=== PATIENT | male | born 1965 | race Hispanic/Latino ===

== ENCOUNTER 2023-10-27 12:40 | Emergency (ER) | payer OTHER ==
--- OUTSIDE RECORDS SUMMARY | 2023-10-27 12:43 | XMS REPORT | Continuity of Care Document ---
Author Name Unknown Address [address] [facility] [address] [place] [address] [facility] Address [address] [facility] 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 Phone BECKA BRAVO Primary Care Physician BECKA Sparrow Attending Clinician Unavailab BECKA Acevedo Attending Clinician Unavailab KRUPA Morales Attending Clinician Unavailable Haile Tang MD Attending Clinician [phone] HAILE TANG Attending Clinician Unavailable Marcelino Bradshaw PA-C Attending Clinician [phone] ANY LIMA Attending Clinician Unavailable ANY LIMA Attending Clinician Unavailable MARCELINO BRADSHAW Attending Clinician Unavailable VAMSI SALGADO Attending Clinician Unavailable Vamsi Salgado PA-C Attending Clinician [phone] 2, [facility] Attending Clinician Unavailable Becka Bravo NP Attending Clinician [phone] MEME KENT Attending Clinician Unavailab MEME Gore Attending Clinician Unavailab SALO Horne Attending Clinician Unavailable 2, [facility] Attending Clinician Unavailable Salo Yang Attending Clinician [phone] Doctor Unassigned, Sargent Attending Clinician U Jeana Banegas MA Attending Clinician Unava ildamaris Payers Payer Name Policy Type Policy Number Effective Date Expirati on Date Source [facility] [id number] 2002 00:00:00 Allergies, Adverse Reactions, Alerts Allergy Name Allergy Type Status Severity Reaction(s) Onset Date Inactive Date Treating Clinician Comments Source NO KNOWN ALLERGIE S Drug Class Active [facility] Social History Social Habit Start Date Stop Date Quantity Comments Source Gender identity [facility] Alcoholic beverage intake 2023-10-27 00:00:00 2023-10-27 00:00:00 3.43 /d [facility] Tobacco use and exposure 2023-10-16 00:00:00 2023-10-16 00:00:00 Smokeless tobacco non-user [facility] History of Social function 2023-04-14 00:00:00 2023-04-14 00:00:00 [facility] Alcohol intake 2023-04-14 00:00:00 2023-04-14 00:00:00 3.43 /d [facility] Exposure to SARS-CoV-2 (event) 2022-05-30 00:00:00 2022-06-09 13:45:00 Not sure [facility] Alcohol Comment 2022-06-09 00:00:00 2022-06-09 00:00:00 drinks 24 packs on weekends [facility] Sex assigned at 1965 00:00:00 1965 00:00:00 [facility] Smoking Status Start Date Stop Date Source Tobacco smoking consumption unknown [facility] Never smoked tobacco [facility] Medications Ordered Medication Name Filled Medication Name Start Date Stop Date Current Medication? Ordering Clinician Indication Dosage Frequency Signature (SIG) Comments Components Source ciprofloxac in-dexameth asone (CIPRODEX) 0.3-0.1 % otic drops 03 00:00: 00 11-26 04:59 :00 Yes [id number] 4[drp] Place 4 Drops in left ear in the morning and 4 Drops in the evening. Do all this for 30 days. [facility] clotrimazol e 1 % solution 10-22 00:00: 00 Yes [id number] 5 drops to right ear twice daily for two weeks [facility] gabapentin 100 mg capsule 10-22 00:00: 00 Yes [id number] 100mg Take 1 capsule by mouth in the morning and 1 capsule at noon and 1 capsule in the evening. [facility] celecoxib (CELEBREX) 50 mg capsule 10-22 00:00: 00 Yes [id number] Take 50 mg (1 cap) PO 2x daily with food and water for 10 days then decrease to every 12 hrs as needed for jaw/facial pain/heada ches. Use [place] coupon or self-pay if not covered by insurance [facility] prednisoLON E acetate 1 % ophthalmic suspension drops 10-15 00:00: 00 Yes [id number] 4[drp] Place 4 Drops in both ears in the morning and 4 Drops in the evening. [facility] cefTRIAXone (ROCEPHIN) injection 1,000 mg 09-28 19:30: 00 09-28 19:02 :00 No [id number] 1000mg 1,000 mg, Intramuscu lar, ONCE, 1 dose, On Thu09/29/23 at 1430, NICK, Reason for Anti-Infec tive: Documented Infection, Documented Infection Site: HEENT, Duration of Therapy: Other (see Comments) [facility] ketorolac (TORADOL) injection 30 mg 09-28 19:30: 00 09-28 18:45 :38 No [id number] 30mg [facility] ketorolac (TORADOL) injection 45 mg 09-28 19:30: 00 09-28 19:01 :00 No [id number] 45mg 45 mg, Intramuscu lar, ONCE, 1 dose, On Thu09/29/23 at 1430, Routine [facility] diclofenac 75 mg EC tablet 09-28 00:00: 00 Yes [id number] 75mg Take 1 tablet by mouth in the morning and 1 tablet in the evening. Take with meals. [facility] tirzepatide (MOUNJARO) 7.5 mg/0.5 mL subcutaneou s injection 2024-0 8-06 00:00: 00 Yes [id number] 7.5mg inject 7.5 mg under the skin weekly. Next dose [facility] cefUROXime 500 mg tablet 09-28 00:00: 00 10-06 04:59 :00 Yes [id number] 500mg Take 1 tablet by mouth in the morning and 1 tablet in the evening. Do all this for 7 days. [facility] tirzepatide (MOUNJARO) 7.5 mg/0.5 mL subcutaneou s injection 09-02 00:00: 00 09-28 00:00 :00 No [id number] 7.5mg inject 7.5 mg under the skin weekly. Next dose [facility] neomycin-po lymyxin-hyd rocortisone otic solution 09-02 00:00: 00 09-10 04:59 :00 Yes [id number] 3[drp] Place 3 Drops in right ear 4 (four) times daily for 7 days. [facility] ciprofloxac in HCl 500 mg tablet 09-02 00:00: 00 09-08 04:59 :00 Yes [id number] 500mg Take 1 tablet by mouth every 12 (twelve) hours for 5 days. [facility] triamcinolo ne acetonide 0.1 % cream 07-09 00:00: 00 Yes [id number] Apply to area(s) 2 (two) times daily. [facility] tirzepatide (MOUNJARO) 7.5 mg/0.5 mL subcutaneou s injection 07-09 00:00: 00 09-02 00:00 :00 No [id number] 7.5mg inject 7.5 mg under the skin weekly. Next dose [facility] tirzepatide (MOUNJARO) 5 mg/0.5 mL subcutaneou s injection 07-09 00:00: 00 09-02 00:00 :00 No [id number] 5mg inject 5 mg under the skin weekly. [facility] tirzepatide (MOUNJARO) 5 mg/0.5 mL subcutaneou s injection 3-29 00:00: 00 07-09 00:00 :00 No [id number] 5mg inject 5 mg under the skin weekly. [facility] tirzepatide (MOUNJARO) 5 mg/0.5 mL subcutaneou s injection 3-28 00:00: 00 Yes [id number] 5mg inject 5 mg under the skin weekly. Start 2.5mg SC qWeek x 4 Weeks, then increase to 5 mg SC qWeek [facility] GLIMEPIRIDE ORAL 2023- 2-20 09:50: 48 04-14 00:00 :00 No 4mg Take 4 mg by mouth in the morning and 4 mg in the evening. [facility] lisinopriL 40 mg tablet 2-20 00:00: 00 Yes [id number] 20mg Take 0.5 tablets by mouth in the morning. [facility] metformin ER 500 mg 24 hr tablet -20 00:00: 00 Yes [id number] 1000mg Take 2 tablets by mouth in the morning and 2 tablets in the evening. [facility] simvastatin 40 mg tablet 2-20 00:00: 00 Yes [id number] 40mg Take 1 tablet by mouth at bedtime. [facility] glimepiride 4 mg tablet 2-20 00:00: 00 07-09 00:00 :00 No [id number] 4mg Take 1 tablet by mouth in the morning and 1 tablet in the evening. Take with meals. [facility] tirzepatide 7.5 mg/0.5 mL subcutaneou s injection 1-24 00:00: 00 07-09 00:00 :00 No [id number] 7.5mg inject 7.5 mg under the skin weekly. Start 2.5mg qWeek x 4 Weeks, then increase to 5mg qWeek x 4 Weeks, then increase to 7.5mg qWeek x 4 Weeks, the increase to 10mg qWeek. [facility] tirzepatide 2.5 mg/0.5 mL subcutaneou s injection 1-24 00:00: 00 05-20 00:00 :00 No [id number] 2.5mg inject 2.5 mg under the skin weekly. Start 2.5mg qWeek x 4 Weeks, then increase to 5mg qWeek x 4 Weeks, then increase to 7.5mg qWeek x 4 Weeks, the increase to 10mg qWeek. [facility] tirzepatide (MOUNJARO) 5 mg/0.5 mL subcutaneou s injection 1-24 00:00: 00 05-19 00:00 :00 No [id number] 5mg inject 5 mg under the skin weekly. Start 2.5mg SC qWeek x 4 Weeks, then increase to 5 mg SC qWeek [facility] semaglutide (OZEMPIC) 1 mg/dose (4 mg/3 mL) Ij 03-13 00:00: 00 03-18 00:00 :00 No [id number] INJECT ONE (1) MG UNDER THE SKIN ONCE WEEKLY. [facility] blood sugar diagnostic strip 09-30 00:00: 00 Yes [id number] Check blood sugar two times a day. E11.9. Brand per insurance. [facility] Blood-Gluco se Meter Kit 09-30 00:00: 00 Yes [id number] Check sugars two times a day. Dx. Code E11.9 Brand per Insurance [facility] Lancets Misc 09-30 00:00: 00 Yes [id number] Check sugars 2x times a day. Dx Code E11.9. Brand per insurance. [facility] semaglutide (OZEMPIC) 1 mg/dose (4 mg/3 mL) PnIj 09-30 00:00: 00 03-13 00:00 :00 No [id number] 1mg inject 1 mg under the skin weekly. [facility] terbinafine HCL 250 mg tablet 8 00:00: 00 11-15 04:59 :00 No [id number] 250mg Take 1 tablet by mouth in the morning for 45 days. [facility] semaglutide (OZEMPIC) 0.25 mg or 0.5 mg (2 mg/3 mL) Ij 09-26 00:00: 00 09-30 00:00 :00 No [id number] .5mg inject 0.5 mg under the skin weekly. [facility] semaglutide (OZEMPIC) 1 mg/dose (4 mg/3 mL) Ij 09-26 00:00: 00 09-30 00:00 :00 No [id number] 1mg inject 1 mg under the skin weekly. [facility] simvastatin 40 mg tablet 09-12 16:27: 38 09-12 00:00 :00 No 40mg Take 1 tablet by mouth at bedtime. [facility] LISINOPRIL ORAL 09-12 16:27: 32 09-12 00:00 :00 No 40mg Take 40 mg by mouth in the morning. [facility] metFORMIN 1,000 mg tablet 09-12 16:27: 32 09-12 00:00 :00 No 1000mg Take 1 tablet by mouth in the morning and 1 tablet in the evening. Take with meals. [facility] GLIMEPIRIDE ORAL 09-12 15:35: 31 Yes 4mg Take 4 mg by mouth in the morning and 4 mg in the evening. [facility] clotrimazol e-betametha sone cream 09-12 00:00: 00 04-14 00:00 :00 No [id number] Apply to area(s) 2 (two) times daily. [facility] simvastatin 40 mg tablet 09-12 00:00: 00 04-14 00:00 :00 No [id number] 40mg Take 1 tablet by mouth at bedtime. [facility] lisinopriL 40 mg tablet 09-12 00:00: 00 04-14 00:00 :00 No [id number] 20mg Take 0.5 tablets by mouth in the morning. [facility] metformin ER 500 mg 24 hr tablet 09-12 00:00: 00 04-14 00:00 :00 No [id number] 1000mg Take 2 tablets by mouth in the morning and 2 tablets in the evening. [facility] GLIMEPIRIDE ORAL 06-11 16:31: 43 Yes 4mg Take 4 mg by mouth in the morning and 4 mg in the evening. [facility] LISINOPRIL ORAL 06-11 16:31: 43 Yes 40mg Take 40 mg by mouth in the morning. [facility] simvastatin 40 mg tablet 0 06-11 16:31: 43 Yes 40mg Take 1 tablet by mouth at bedtime. [facility] metFORMIN 1,000 mg tablet 06-11 16:31: 43 Yes 1000mg Take 1 tablet by mouth in the morning and 1 tablet in the evening. Take with meals. [facility] GLIMEPIRIDE ORAL 06-09 14:25: 22 Yes 4mg Take 4 mg by mouth in the morning and 4 mg in the evening. [facility] LISINOPRIL ORAL 06-09 14:25: 22 Yes 40mg Take 40 mg by mouth in the morning. [facility] simvastatin 40 mg tablet 06-09 14:25: 22 Yes 40mg Take 1 tablet by mouth at bedtime. [facility] metFORMIN 1,000 mg tablet 06-09 14:25: 22 Yes 1000mg Take 1 tablet by mouth in the morning and 1 tablet in the evening. Take with meals. [facility] silver sulfADIAZIN E 1 % cream 06-09 00:00: 00 07-09 00:00 :00 No [id number] APPLY TWICE DAILY UNTIL HEALED. [facility] semaglutide (OZEMPIC) 1 mg/dose (4 mg/3 mL) PnIj 06-09 00:00: 00 08-09 04:59 :00 No [id number] 1mg inject 1 mg under the skin weekly for 60 days. [facility] semaglutide (OZEMPIC) 0.25 mg or 0.5 mg (2 mg/3 mL) Ij 2022-0 06-09 00:00: 00 07-24 04:59 :00 No [id number] .25mg inject 0.25 mg under the skin weekly [facility] semaglutide (OZEMPIC) 0.25 mg or 0.5 mg(2 mg/1.5 mL) Ij 06-09 00:00: 00 07-10 04:59 :00 No [id number] .25mg inject 0.25 mg under the skin weekly for 30 days. [facility] semaglutide (OZEMPIC) 0.25 mg or 0.5 mg(2 mg/1.5 mL) [facility] 2022-0 06-09 00:00: 00 07-10 04:59 :00 No [id number] .5mg inject 0.5 mg under the skin weekly for 30 days. [facility] semaglutide (OZEMPIC) 0.25 mg or 0.5 mg (2 mg/3 mL) Ij 0 06-09 00:00: 00 07-10 04:59 :00 No [id number] .5mg inject 0.5 mg under the skin weekly for 30 days. [facility] cephALEXin 500 mg capsule 05-26 00:00: 00 09-12 00:00 :00 No TAKE ONE (1) CAPSULE(S) BY MOUTH EVERY SIX HOURS FOR 7 DAYS. [facility] clindamycin 300 mg capsule 05-26 00:00: 00 09-12 00:00 :00 No TAKE ONE (1) TABLET(S) BY MOUTH EVERY SIX HOURS FOR 10 DAYS. [facility] silver sulfADIAZIN E 1 % cream 05-26 00:00: 00 06-09 00:00 :00 No APPLY TWICE DAILY UNTIL HEALED. [facility] Vital Signs Vital Name Observation Time Observation Value Comments S ource Body temperature 2023-10-27 14:51:00 35.67 [facility] Body height 2023-10-27 14:51:00 170.2 cm [facility] 2023-10-27 14:51:00 73.846 [facility] BMI 2023-10-27 14:51:00 25.50 kg/m2 [facility] Body temperature 2023-10-23 16:25:00 36.22 Luc[facility] Body height 2023-10-23 16:25:00 170.2 cm [facility] Body weight 2023-10-23 16:25:00 73.029 kg [facility] BMI 2023-10-23 16:25:00 25.22 kg/m2 [facility] Body temperature 2023-10-16 18:14:00 35.33 Lucinda [facility] Body height 2023-10-16 18:14:00 170.2 cm [facility] Body weight 2023-10-16 18:14:00 74.617 kg [facility] BMI 2023-10-16 18:14:00 25.76 kg/m2 [facility] Systolic blood pressure 2023-09-29 18:15:00 131 mm[Hg] [facility] Diastolic blood pressure 2023-09-29 18:15:00 77 mm[Hg] [facility] Heart rate 2023-09-29 18:14:00 71 [facility] Body temperature 2023-09-29 18:14:00 36.39 [facility] Body height 2023-09-29 18:14:00 170.2 cm [facility] Body weight 2023-09-29 18:14:00 77.111 kg [facility] BMI 2023-09-29 18:14:00 26.63 kg/m2 [facility] Oxygen saturation in Arterial blood by Pulse oximetry 2023-09-29 18:14:00 99 /min [facility] Systolic blood pressure 2023-09-03 20:53:00 139 mm[Hg] [facility] Diastolic blood pressure 2023-09-03 20:53:00 82 mm[Hg] [facility] Heart rate 2023-09-03 20:53:00 97 /min [facility] Body temperature 2023-09-03 20:53:00 36.89 Lucinda [facility] Respiratory rate 2023-09-03 20:53:00 18 /min [facility] Body height 2023-09-03 20:53:00 170.2 cm [facility] Body weight 2023-09-03 20:53:00 78.019 kg [facility] BMI 2023-09-03 20:53:00 26.94 kg/m2 [facility] Oxygen saturation in Arterial blood by Pulse oximetry 2023-09-03 20:53:00 99 /min [facility] Systolic blood pressure 2023-07-10 15:35:00 111 mm[Hg] [facility] Diastolic blood pressure 2023-07-10 15:35:00 67 mm[Hg] [facility] Heart rate 2023-07-10 15:35:00 72 /min [facility] Body temperature 2023-07-10 15:35:00 36.17 Lucinda [facility] Body height 2023-07-10 15:35:00 170.2 cm [facility] Body weight 2023-07-10 15:35:00 79.652 kg [facility] BMI 2023-07-10 15:35:00 27.50 kg/m2 [facility] Oxygen saturation in Arterial blood by Pulse oximetry 2023-07-10 15:35:00 99 /min [facility] Systolic blood pressure 2023-04-14 15:33:00 132 mm[Hg] [facility] Diastolic blood pressure 2023-04-14 15:33:00 85 mm[Hg] [facility] Heart rate 2023-04-14 15:32:00 97 /min [facility] Body temperature 2023-04-14 15:32:00 36.17 Lucinda [facility] Respiratory rate 2023-04-14 15:32:00 18 /min [facility] Body height 2023-04-14 15:32:00 170.2 cm [facility] Body weight 2023-04-14 15:32:00 77.338 kg [facility] BMI 2023-04-14 15:32:00 26.70 kg/m2 [facility] Oxygen saturation in Arterial blood by Pulse oximetry 2023-04-14 15:32:00 99 /min [facility] Systolic blood pressure 2022-12-15 13:26:00 135 mm[Hg] [facility] Diastolic blood pressure 2022-12-15 13:26:00 79 mm[Hg] [facility] Heart rate 2022-12-15 13:25:00 94 /min [facility] Body temperature 2022-12-15 13:25:00 36.28 Lucinda [facility] Respiratory rate 2022-12-15 13:25:00 16 /min [facility] Body weight 2022-12-15 13:25:00 78.472 kg [facility] BMI 2022-12-15 13:25:00 27.10 kg/m2 [facility] Oxygen saturation in Arterial blood by Pulse oximetry 2022-12-15 13:25:00 97 /min [facility] Systolic blood pressure 2022-09-12 20:36:00 141 mm[Hg] [facility] Diastolic blood pressure 2022-09-12 20:36:00 83 mm[Hg] [facility] Heart rate 2022-09-12 20:36:00 101 /min [facility] Respiratory rate 2022-09-12 20:36:00 18 /min [facility] Body weight 2022-09-12 20:36:00 81.738 kg [facility] BMI 2022-09-12 20:36:00 28.22 kg/m2 [facility] Systolic blood pressure 2022-06-09 19:28:00 159 mm[Hg] [facility] Diastolic blood pressure 2022-06-09 19:28:00 90 mm[Hg] [facility] Heart rate 2022-06-09 19:25:00 97 /min [facility] Body temperature 2022-06-09 19:25:00 35.67 Lucinda [facility] Respiratory rate 2022-06-09 19:25:00 18 /min [facility] Body height 2022-06-09 19:25:00 170.2 cm [facility] Body weight 2022-06-09 19:25:00 82.328 kg [facility] BMI 2022-06-09 19:25:00 28.43 kg/m2 [facility] Oxygen saturation in Arterial blood by Pulse oximetry 2022-06-09 19:25:00 97 /min [place] [facility] Procedures Procedure Date / Time Performed Performing Clinician Source FREE T4 2023-09-29 19:15:00 Becka Bravo Un [facility] THYROID STIMULATING HORMONE 2023-09-29 19:15:00 Becka Bravo [facility] COMP. METABOLIC PANEL ([id number]) 2023-09-29 19:15:00 Becka Bravo [facility] LIPID PANEL ([id number])(TOTAL CHOLESTEROL, TRIGLYCERIDES, HDL) 2023-09-29 19:15:00 Becka Bravo [facility] CBC WITH DIFF 2023-09-29 19:15:00 Becka Bravo U [facility] GLYCOSYLATED HEMOGLOBIN (A1C) 2023-09-29 19:15:00 Becka Bravo [facility] FREE T3 2023-09-29 19:15:00 Becka Bravo Un [facility] THYROID STIMULATING HORMONE 2022-12-15 14:51:00 Becka Bravo [facility] COMP. METABOLIC PANEL ([id number]) 2022-12-15 14:51:00 Becka Bravo [facility] LIPID PANEL ([id number])(TOTAL CHOLESTEROL, TRIGLYCERIDES, HDL) 2022-12-15 14:51:00 Becka Bravo [facility] CBC WITH DIFF 2022-12-15 14:51:00 [facility] GLYCOSYL[facility]OGLOBIN (A1C) 2022-12-15 14:51:00 Becka Bravo [facility] EXTERNAL FIT DNA 2022-07-10 15:27:00 Doctor Unas signed, Sargent [facility] POCT HEMOGLOBIN A1C TEST 2022-06-09 20:10:00 Becka Bravo [facility] ASSIGNMENT OF BENEFITS 2022-06-09 18:44:36 Docto r Unassigned, Sargent [facility] Plan of Care Planned Activity Planned Date Details Comments Source Encounters Start Date/Time End Date/Time Encounter Type Admission Type Attending Clinicians Care Facility Care Department Encounter ID Source 2023-11-13 09:00:00 2023-11-13 09:00:00 Outpatient BECKA HARRELL OGECHUKWU [facility] [id number] [facility] 2023-10-28 10:00:00 2023-10-28 10:00:00 Outpatient R KRUPA MALHOTRA [facility] [id number] [facility] 2023-10-27 10:00:00 2023-10-27 10:41:15 Office Visit Haile Tang [facility] [id number] 350.1.13.10 4.2.7.2.686 [id number] [facility] 2023-10-27 10:00:00 2023-10-27 10:00:00 Outpatient R HAILE TANG [facility] [id number] [facility] 2023-10-23 00:00:00 2023-10-23 16:04:11 Telephone Marcelino Bradshaw [facility] [id number] 350.1.13.10 4.2.7.2.686 [id number] [facility] 2023-10-23 14:39:02 2023-10-23 14:39:02 Outpatient R ANY LIMA LUPITA [facility] [id number] [facility] 2023-10-23 11:20:00 2023-10-23 12:15:59 Office Visit Marcelino Bradshaw [facility]RISTINA LEAHY [id number] 350.1.13.10 4.2.7.2.686 [id number] [facility] 2023-10-23 00:00:00 2023-10-23 12:15:25 Letter (Out) Marcelino Bradshaw [facility] 1.2840.114 350.1.13.10 4.2.7.2.686 [id number] [facility] 2023-10-22 15:15:00 2023-10-22 15:15:00 Outpatient R VAMSI SALGADO [facility] [id number] [facility] 2023-10-16 13:00:00 2023-10-16 16:09:50 Outpatient R MARCELINO BRADSHAW [facility] [id number] [facility] 2023-10-16 13:00:00 2023-10-16 16:09:50 Office Visit Marcelino Bradshaw [facility] [id number] 350.1.13.10 4.2.7.2.686 [id number] [facility] 2023-10-14 00:00:00 2023-10-14 13:48:11 Telephone Damian Goodrich [facility] [id number] 350.1.13.10 4.2.7.2.686 [id number] [facility] 2023-09-29 14:15:00 2023-09-29 14:29:33 Senior [employer] Visit 2, Adc Lab Becka Bravo 2, [facility] [id number] 350.1.13.10 4.2.7.2.686 [id number] [facility] 2023-09-29 13:00:00 2023-09-29 14:00:31 Outpatient R ROSIE BRAVORACHELLEKevin BENOITLAWRENCEBECKA OWENS [facility] [id number] [facility] 2023-09-29 13:00:00 2023-09-29 14:00:31 Office Visit Lawrence [facility] [id number] 350.1.13.10 4.2.7.2.686 [id number] [facility] 2023-09-03 16:00:00 2023-09-03 16:17:03 Outpatient R OBI-SUDHEER MEME [facility] [id number] [facility] 2023-09-03 16:00:00 2023-09-03 16:17:03 Office Visit Obi-Sudheer Meme [facility] [id number] 350.1.13.10 4.2.7.2.686 [id number] [facility] 2023-08-21 00:00:00 2023-08-21 13:49:25 Telephone LawrenceBecka [facility] [id number] 350.1.13.10 4.2.7.2.686 [id number] [facility] [facility] 2023-07-17 09:30:00 2023-07-17 09:30:00 Outpatient R NANDA BRAVOBECKA FABIAN [facility] [id number] [facility] 2023-07-10 00:00:00 2023-07-10 13:39:26 Patient Secure Msg [facility] 1.2.840.114 350.1.13.10 4.2.7.2.686 [id number] 044 [id number] [facility] 2023-07-10 11:00:00 2023-07-10 11:32:52 Outpatient R [facility]KA [facility] [id number] [facility] 2023-07-10 11:00:00 2023-07-10 11:32:52 [facility] 1.2.840.114 350.1.13.10 4.2.7.2.686 [id number] [facility] 2023-05-21 00:00:00 2023-05-21 00:00:00 Telephone Becka Bravo [facility] 1.2.840.114 350.1.13.10 4.2.7.2.686 [id number] 044 [id number] [facility] 2023-05-20 00:00:00 2023-05-20 00:00:00 Refill [facility]e Kent [facility] 1.2.840.114 350.1.13.10 4.2.7.2.686 [id number] [facility] 2023-04-20 09:00:00 2023-04-20 09:00:00 Outpatient R SALO LOZA [facility] [id number] [facility] 2023-04-14 10:15:00 2023-04-14 12:17:28 Outpatient R SALO LOZA [facility] [id number] [facility] 2023-04-14 10:15:00 2023-04-14 10:30:00 Senior Commercial Loan Officer Visit 2, Adc Lab Salo Loza [facility] 1.2.840.114 350.1.13.10 4.2.7.2.686 [id number] [facility] 2023-04-14 09:30:00 2023-04-14 09:54:16 Office Visit [facility] 1.2.840.114 350.1.13.10 4.2.7.2.686 [id number] [facility] 2023-03-20 09:00:00 2023-03-20 09:00:00 Outpatient R SALO LOZA [facility] [id number] [facility] 2023-03-18 00:00:00 2023-03-18 00:00:00 Patient Secure Msg Becka Bravo [facility] 1.2.840.114 350.1.13.10 4.2.7.2.686 [id number] 044 [id number] [facility] 2023-03-18 00:00:00 2023-03-18 00:00:00 Telephone Becka Bravo [facility] 1.2.840.114 350.1.13.10 4.2.7.2.686 [id number] 044 [id number] [facility] 2023-03-12 00:00:00 2023-03-12 00:00:00 Refill Becka Bravo [facility] 1.2.840.114 350.1.13.10 4.2.7.2.686 [id number] [id number] [facility] 2022-12-20 00:00:00 2022-12-20 00:00:00 Patient Secure Msg Doctor Unassigned, Sargent [facility] 1.2.840.114 350.1.13.10 4.2.7.2.686 [id number] [facility] 2022-12-17 00:00:00 2022-12-17 00:00:00 Telephone Becka Bravo [facility] 1.2.840.114 350.1.13.10 4.2.7.2.686 [id number] 044 [id number] [facility] 2022-12-15 09:45:00 2022-12-15 10:00:00 Senior Commercial Loan Officer Visit 2, Adc Lab Becka Bravo [facility] 1.2.840.114 350.1.13.10 4.2.7.2.686 [id number] [facility] 2022-12-15 09:00:00 2022-12-15 09:31:21 Outpatient R BECKA BRAVO [facility] [id number] [facility] 2022-12-15 09:00:00 2022-12-15 09:31:21 Office Visit Becka Bravo [facility] 1.2.840.114 350.1.13.10 4.2.7.2.686 [id number] 044 [id number] [facility] 2022-12-11 00:00:00 2022-12-11 00:00:00 Telephone Becka Bravo [facility] 1.2.840.114 350.1.13.10 4.2.7.2.686 [id number] 044 [id number] [facility] 2022-09-30 00:00:00 2022-09-30 00:00:00 Telephone Becka Bravo [facility] 1.2.840.114 350.1.13.10 4.2.7.2.686 [id number] [facility] 2022-09-24 00:00:2022-09-24 00:00:00 Telephone Becka Bravo [facility] 1.2.840.114 350.1.13.10 4.2.7.2.686 [id number] 044 [id number] [facility] 2022-09-18 08:15:00 2022-09-18 08:28:16 Outpatient R BECKA BRAVO [facility] [id number] [facility] 2022-09-18 08:15:00 2022-09-18 08:28:16 Senior Commercial Loan Officer Visit 2, Adc Lab [facility] 1.2.840.114 350.1.13.10 4.2.7.2.686 [id number] [facility] 2022-09-12 15:30:00 2022-09-12 16:30:44 Office Visit [facility] 1.2.840.114 350.1.13.10 4.2.7.2.686 [id number] 044 [id number] [facility] 2022-09-12 15:30:00 2022-09-12 16:30:44 Outpatient R BECKA BRAVO [facility] [id number] [facility] 2022-09-12 15:30:00 2022-09-12 15:30:00 Outpatient R BECKA BRAVO [facility] [id number] [facility] 2022-07-17 00:00:00 2022-07-17 00:00:00 Case Management Jeana Chandler 1.2.840.114 350.1.13.10 4.2.7.2.686 [id number] [facility] 2022-07-11 00:00:00 2022-07-11 00:00:00 Telephone Becka Bravo [facility] 1.2.840.114 350.1.13.10 4.2.7.2.686 [id number] 044 [id number] [facility] 2022-06-27 00:00:00 2022-06-27 00:00:00 Letter (Out) Becka Bravo [facility] 1.2.840.114 350.1.13.10 4.2.7.2.686 [id number] [id number] [facility] 2022-06-13 00:00:00 2022-06-13 00:00:00 Telephone Becka Bravo [facility] 1.2.840.114 350.1.13.10 4.2.7.2.686 [id number] [facility] 2022-06-09 14:00:00 2022-06-09 15:43:05 Office Visit Becka Bravo [facility] 1.2.840.114 350.1.13.10 4.2.7.2.686 [id number] [id number] [facility] 2022-06-09 14:00:00 2022-06-09 15:43:05 Outpatient R BECKA BRAVO [facility] [id number] [facility] 2022-06-09 00:00:00 2022-06-09 00:00:00 Orders Only Doctor Unassigned, Sargent [facility] 1.2.840.114 350.1.13.10 4.2.7.2.686 [id number] [facility] Results Test Description Test Time Test Comments Results Result Co mments Source [id number] 20:28:50* Test Item Value Reference Range Interpretation Comme nts FREE T4 (test code = 9276762077) 1.23 0.78-2.20 Lab Interpretation (test cod e = 77418-6) Normal [facility] [id number] 20:28:29* Test Item Value Reference Range Interpretation Comme nts FREE T3 (test code = 4032072865) 4.42 pg/mL 2.77-5.27 Lab Interpretation (test cod e = 94606-2) Normal [facility] (07726)(Total Cholesterol, Triglycerides, HDL)2023-09-29 20:12:08* Test Item Value Reference Range Interpretation Comme nts CHOL (test code = 5702596537) 145 mg/dL 120-200 HDL (test code = 1729892046) 56 mg/dL >=40 HDLC RATIO (test code = 5810572031) 2.6 <=5.0 TRIG (test code = 2112246333) 164 mg/dL 30-170 LDL CHOL (test code = 56169-1) 56 mg/dL <=160 VLDL (test code = 3199599351) 33 mg/dL 5-60 Lab Interpretation (test cod e = 44075-6) Normal [facility] (32091)2023-09-29 20:12:07* Test Item Value Reference Range Interpretation Comme nts NA (test code = 4871764508) 138 mmol/L 135-145 K (test code = 4736605240) 4.7 mmol/L 3.5-5.0 CL (test code = 1950656304) 100 mmol/L 98-108 CO2 TOTAL (test code = 4874868241) 26 mmol/L 23-31 AGAP (test code = 0273023533) 12 2-16 BUN (test code = 3170678451) 22 mg/dL 7-23 GLUCOSE (test code = 0700756952) 102 mg/dL 70-110 CREATININE (test code = 2160-0) 1.19 mg/dL 0.60-1.25 TOTAL BILI (test code = 8521417322) 0.7 mg/dL 0.1-1.1 CALCIUM (test code = 2290535048) 9.7 mg/dL 8.6-10.6 T PROTEIN (test code = 7632593037) 8.0 g/dL 6.3-8.2 ALBUMIN (test code = 7680648612) 4.1 g/dL 3.5-5.0 ALK PHOS (test code = 5950039100) 100 U/L 34-122 ALTv (test code = 1742-6) 13 U/L 5-50 AST(SGOT) (test code = 0046910173) 19 U/L 13-40 eGFR (test code = 46206-8) 71.7 mL/min/1.73m2 CKD-EPI eGFR (20 21). Assuming creatinine has been stable day-to-day for at least three months, the eGFR indicates Category G2 (60 - 89 mL/min/1.73 m2) [facility] Center[facility] Hemoglobin (A1C)2023-09-29 19:59:44* Test Item Value Reference Range Interpretation Comme nts HGB A1C (test code = 4548-4) 6.2 % 4.0-5.7 H PATRICK (test code = PATRICK) Reference RangesNormal: <5.7%Prediabetes: 5.7 - 6.4%Diabetes: > 6.5% Lab Interpretation (test code = 40452-4) Abnormal [facility] CenterCbc with [id number] 19:48:42* Test Item Value Reference Range Interpretation Comme nts WBC (test code = 6690-2) 12.36 4.20-10.70 H RBC (test code = 789-8) 4.08 4.26-5.52 L HGB (test code = 718-7) 12.0 g/dL 12.2-16.4 L HCT (test code = 4544-3) 36.8 % 38.4-49.3 L MCV (test code = 787-2) 90.2 fL 81.7-95.6 MCH (test code = 785-6) 29.4 pg 26.1-32.7 MCHC (test code = 786-4) 32.6 g/dL 31.2-35.0 RDW-SD (test code = 78520-8) 43.8 fL 38.5-51.6 RDW-CV (test code = 788-0) 13.3 % 12.1-15.4 PLT (test code = 777-3) 335 150-328 H MPV (test code = 07064-4) 9.6 fL 9.8-13.0 L NRBC/100 WBC (test code = 8872275865) 0.0 0.0-10.0 NRBC x10^3 (test code = 0676015277) See_Comment [Automated messa ge] The system which generated this result transmitted reference range: 10*3/?L. The reference range was not used to interpret this result as normal/abnormal. GRAN MAT (NEUT) % (test code = 770-8) 73.3 % IMM GRAN % (test code = 8119115003) 0.60 % LYMPH % (test code = 736-9) 16.6 % MONO % (test code = 5905-5) 7.9 % EOS % (test code = 713-8) 1.1 % BASO % (test code = 706-2) 0.5 % GRAN MAT x10^3(ANC) (test code = 4145614573) 9.05 10*3/uL 1.99-6.95 H IMM GRAN x10^3 (test code = 1138113511) 0.08 10*3/uL 0.00-0.06 H LYMPH x10^3 (test code = 731-0) 2.05 10*3/uL 1.09-3.23 MONO x10^3 (test code = 742-7) 0.98 10*3/uL 0.36-1.02 EOS x10^3 (test code = 711-2) 0.14 10*3/uL 0.06-0.53 BASO x10^3 (test code = 704-7) 0.06 10*3/uL 0.01-0.09 Lab Interpretation (test code = 06629-0) Abnormal [facility] CenterEX[facility] FIT [id number] 21:25:00* Test Item Value Reference Range Interpretation Comme nts PATRICK (test code = PATRICK) Test Result Negati ve Negative NEGATIVE TEST RESULT. A negative Cologuard result indicates a low likelihood that a colorectal cancer (CRC) or advanced adenoma (adenomatous polyps with more advanced pre-malignant features) ?is present. The chance that a person with a negative Cologuard test has a colorectal cancer is less than 1 in 1500 (negative predictive value >99.9%) or has an ?advanced adenoma is less than ?5.3% (negative predictive value 94.7%). These data are based on a prospective cross-sectional study of 10,000 individuals at average risk for colorectal cancer who were screened with both Cologuard and colonoscopy. (Yokasta Kahn al, N Engl J Med 2014;370(14):4530-2586) The normal value (reference range) for this assay is negative. COLOGUARD RE-SCREENING RECOMMENDATION: Periodic colorectal cancer screening is an important part of preventive healthcare for asymptomatic individuals at average risk for colorectal cancer. ?Following a negative Cologuard result, the [place] [employer] and U.S. Multi-Society Task Force?screening guidelines recommend a Cologuard re-screening interval of 3 years. References: [place] [employer] Guideline for Colorectal Cancer Screening: https://www.cancer.org/ cancer/otzjg-kauodo-dif cer/detection-diagnosis -staging/acs-recommenda tions.html.; Parker DK, Jodi MARTINEZ, Pallavi MaganaK, Colorectal Cancer Screening: Recommendations for Physicians and Patients from the U.S. Multi-Society Task Force on Colorectal Cancer Screening , Am J Gastroenterology 2017; 112:0532-0711. TEST DESCRIPTION: Composite algorithmic analysis of stool DNA-biomarkers with hemoglobin immunoassay. ? Quantitative values of individual biomarkers are not reportable and are not associated with individual biomarker result reference ranges. Cologuard is intended for colorectal cancer screening of adults of either sex, 45 years or older, who are at average-risk for colorectal cancer (CRC). Cologuard has been approved for use by the U.S. FDA. The performance of Cologuard was established in a cross sectional study of average-risk adults aged 50-84. Cologuard performance in patients ages 45 to 49 years was estimated by sub-group analysis of near-age groups. Colonoscopies performed for a positive result may find as the most clinically significant lesion: colorectal cancer [4.0%], advanced adenoma (including sessile serrated polyps greater than or equal to 1cm diameter) [20%] or non- advanced adenoma [31%]; or no colorectal neoplasia [45%]. These estimates are derived from a prospective cross-sectional screening study of 10,000 individuals at average risk for colorectal cancer who were screened with both Cologuard and colonoscopy. (Yokasta Kahn al, N Engl J Med 2014;370(14):5176-1080. ) Cologuard may produce a false negative or false positive result (no colorectal cancer or?precancerous polyp present at colonoscopy follow up). A negative Cologuard test result does not guarantee the absence of CRC or advanced adenoma (pre-cancer). The current Cologuard screening interval is every 3 years. ([place] [employer] and U.S. Multi-Society Task Force). Cologuard performance data in a 10,000 patient pivotal study using colonoscopy as the reference method can be accessed at the following location: www.Cytox/resul ts. Additional description of the Cologuard test process, warnings and precautions can be found at www.[employer]O.[employer].[facility] [employer] (CLIA #:[id number]) Specimen Collected: 06/30/22 22:27 Last Resulted: 07/10/22 16:25Received From: [facility] Result Received: 07/17/22 11:44 Lab Interpretation (test code = 68775-0) Normal [facility] HEMOGLOBIN A1C [id number] 20:17:00* Test Item Value Reference Range Interpretation Comme nts POCT HBA1C (test code = 4548-4) 11.6 % 4-6 A Lab Interpretation (test cod e = 00757-2) Abnormal [facility] HEMOGLOBIN A1C [id number] 20:17:00* Test Item Value Reference Range Interpretation Comme nts POCT HBA1C (test code = 4548-4) 11.6 % 4-6 A Lab Interpretation (test cod e = 61684-6) Abnormal [facility] Notes Date/Time Note Provider Source 2023-10-23 15:46:01 I contacted the patient via telephone number on file. After confirming the patient's name and , I relayed the results of recent CT temporal bone. Patient does not have evidence of malignant otitis externa as there was suspicion due to pain, change in sense of taste, and history of poorly controlled diabetes. Patient is scheduled to follow up with Dr. Tang for further evaluation. Marcelino Bradshaw PA-C Department of Otolaryngology [facility] P: [phone] [facility] 2023-10-14 13:47:52 I have reached out to the patient and left voice mail regarding his/her appointment with PA. Salgado on 10/22/2023. Unfortunately, we were just made aware that PA. Salgado will be out of the clinic this day so we will need to reschedule this appointment for the patient. Thank You and Please assist, Rima Stallworth. Rima Stallworth [facility] 2023-09-29 14:15:00 Images from the original note were not included. Venipuncture collection performed by clean technique on the right anticubitus. Total of 1 attempts were made. Slight pressure and a bandage/dressing were applied to the site(s). The patient experienced no complications. The following specimens were processed according to instructions and sent to [facility] laboratories per lab order on 09/29/2023: LT BLUE SST 1 RED LAV 2 PPT DK GREEN (LiHep) DK GREEN (SodH) SHARP DK BLUE (K2) DK BLUE (S) ACD Blood Culture NIPT/NTD [facility] 2023-08-21 13:47:58 Called placed to pt, informed his Stan pt would need to be seen in clinic for evaluation, if out of town pt to be seen in Urgent care. Informed pt we do have appts available next week if they are back in town. Reports will call if they wish to scheduled. Almaz Barbosa RN [facility] 2023-08-21 13:27:37 Ella Prakash is a 58 year old male and Don is calling for the pt. Pt is out of town for work currently and got water in his ear 2 weeks ago. Pt states he is having ear pain with swelling and asking if a medication can be called in for him. Pts Beti Gamez [facility] 2023-07-10 16:48:35 Addended by: ALMAZ RIVERS V on: 07/10/2023 04:48 PM Modules accepted: Orders T [facility] 2023-07-10 16:46:00 Pt requesting medication to be forwarded to [facility] pharmacy as current pharmacy does not have medication in stock. Medication sent to [facility] 2023-05-22 15:55:00 Rx. For Mounjaro 5 mg sent to pharmacy T [facility] 2023-05-21 13:24:56 Spoke to pts to clarify dosage pt is currently taking. Pts states he has been on Mounjaro for 1 month on 2.5mg dose, and will be increasing to 5mg. Pharmacy is needing correct script with new dose and increase if needed at 4 weeks. Will route to provider for review. Disp Refills Start End RAPHAEL tirzepatide (MOUNJARO) 5 mg/0.5 mL subcutaneous injection 2 mL 2 05/21/2023 -- -- Sig: inject 5 mg under the skin weekly. Start 2.5mg SC qWeek x 4 Weeks, then increase to 5 mg SC qWeek Sent to pharmacy as: Mounjaro 5 mg/0.5 mL subcutaneous pen injector (tirzepatide) Class: eRX Route: Subcutaneous Almaz Barbosa RN [facility] 2023-05-21 10:02:00 Ella Prakash is a 57 year old male [facility] pharmacy called because the direction for the 5 mg mumjaro rx has direction for the 2.5 mg dose. They want to know if they wanted the pt on both dosage if so then they need to sen in a rx for th 2.5 mg. Please advise. Noemi Rubin [facility] 2023-05-21 08:31:41 Images from the original note were not included. Routed to provider for review. Unable to refill per ambulatory refill guidelines. Notes: tirzepatide (MOUNJARO) 5 mg/0.5 mL subcutaneous injection Sig: inject 5 mg under the skin weekly. 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 Valid encounter within last 12 months To be filled at: [facility] [place] [place] [facility] [address] Last Refilled: 03/18/23 Recent Visits Date Type Provider Dept 04/14/23 Office Visit Salo Loza FNP [facility] 12/15/22 Office Visit Becka Bravo NP [facility] 09/12/22 Office Visit Becka Bravo NP [facility] 06/09/22 Office Visit Becka Bravo NP [facility] Showing recent visits within past 540 days with a meds authorizing provider and meeting all other requirements Future Appointments Date Type Provider Dept 07/10/23 Appointment Becka Bravo NP [facility] Showing future appointments within next 150 days with a meds authorizing provider and meeting all other requirements Salo Donald MA [facility] 2023-04-14 10:15:00 Images from the original note were not included. Venipuncture collection performed by clean technique on the left anticubitus. Total of 1 attempts were made. Slight pressure and a bandage/dressing were applied to the site(s). The patient experienced no complications. The following specimens were processed according to instructions and sent to [facility] laboratories per lab order on 04/14/2023 : LT BLUE SST 1 RED LAV 1 PPT DK GREEN (LiHep) DK GREEN (SodH) SHARP DK BLUE (K2) DK BLUE (S) ACD Blood Culture NIPT/NTD [facility] 2023-03-18 16:53:27 Spoke with patient and informed. [employer] OFFICER Katherine Singh MA [facility] 2023-03-18 16:44:21 1. 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 Start 2.5mg qWeek x 4 Weeks, then increase to 5mg qWeek x 4 Weeks, then increase to 7.5mg qWeek x 4 Weeks, the increase to 10mg qWeek. Dispense: 2 mL; Refill: 0 - tirzepatide (MOUNJARO) 5 mg/0.5 mL subcutaneous injection; inject 5 mg under the skin weekly. Start 2.5mg SC qWeek x 4 Weeks, then increase to 5 mg SC qWeek Dispense: 2 mL; Refill: 2 - tirzepatide 7.5 mg/0.5 mL subcutaneous injection; inject 7.5 mg under the skin weekly. Start 2.5mg qWeek x 4 Weeks, then increase to 5mg qWeek x 4 Weeks, then increase to 7.5mg qWeek x 4 Weeks, the increase to 10mg qWeek. Dispense: 4 mL; Refill: 2 [facility] 2023-03-18 16:31:40 Routing to provider. [facility] 2023-03-18 16:29:18 Ella Prakash is a 57 year old male Pt calling in to notify clinic of alternate medications for Ozempic that his insurance will cover: Paola Carpenter Pt would like a call back to discuss which alternate Rx will be prescribed [phone] (home) O Ruff [facility] 2023-03-18 16:11:34 Patient will contact insurance to check on alternative. O Singh MA [facility] 2023-03-18 16:10:56 Patient will contact insurance to check on alternative. O Singh MA [facility] 2023-03-18 16:01:48 Ella Prakash is a 57 year old male and pt is returning call in regards to getting a medication that his insurance will cover. [phone] (home). [employer]ICER Beti Tao [facility] 2023-03-18 15:55:15 Attempted to call patient, no answer, LVM to call back. [facility] 2023-03-18 15:26:15 Can we find out alternative coverage for GLP with patient 's plan as she is using this for diabetes treatment [facility] 2023-03-13 07:45:37 Images from the original note were not included. Requested Renewals Name from pharmacy: OZEMPIC 1mg/dose Soln for Inj (1 PEN) Will file in chart as: OZEMPIC 1 mg/dose (4 mg/3 mL) PnIj Sig: INJECT ONE (1) MG UNDER THE SKIN ONCE WEEKLY. 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 Valid encounter within last 12 months To be filled at: [facility] Pharmacy [address] 12-15-2022 NOV 03-20-2023 O Singh MA [facility] 2022-09-30 16:17:00 Formatting of this n ote might be different from the original. Called patient and reviewed meds/questions and labs [facility] 2022-09-30 10:36:54 Formatting of this n ote is different from the original. Notified patient of test results/recommendations per SECURITY AND PRIVACY CONSULTANT Brii. Patient gave verbal understanding via teach back. Pt states he spoke with provider about rash, states provider prescribed a cream but was waiting on kidney and liver function test results to possibly be prescribed alternative medication for rash. Advised patient I would route to provider for recommendations. Becka Bravo NP 09/26/2022 5:49 PM CDT Back to Top Reviewed labs - Normal thyroid levels. - Hemoglobin A1C 8.6. Major improvements noted with glycosylated hemoglobin; was 11.6 now 8.6. continue to monitor carbohydrates and sugar intake. Continue Ozempic @ 0.5 then progress to 1 mg. - Blood cells are within normal limits. - Cholesterol levels are still elevated, continue Simvastatin and monitor dietary intake. Increase foods high in omega 3. - Normal vitamin D levels - Normal kidney and liver function Rocio Avitia MA [facility] 2022-09-25 09:33:39 Formatting of this n ote might be different from the original. Per pt the ozempic is 0.5 dosage. Eva Holm [facility] 2022-09-25 09:16:22 Formatting of this n ote might be different from the original. Called patient to verify dose needed to be refilled. Called patient, No answer, LVM. After chart review Ozempic 1 mg needs to be reorded. Please review and further advise. [facility] 2022-09-24 08:00:54 Formatting of this n ote might be different from the original. Pt called and is requesting a refill on Ozempic. Please advise. Eva Laughlin [facility] 2022-09-18 08:15:00 Formatting of this n ote is different from the original. Images from the original note were not included. Venipuncture collection performed by clean technique on the left anticubitus. Total of 2 attempts were made. Slight pressure and a bandage/dressing were applied to the site(s). The patient experienced no complications. The following specimens were processed according to instructions and sent to [facility] laboratories per lab order on 09/18/2022 : LT BLUE SST 2 RED LAV 2 PPT DK GREEN (LiHep) DK GREEN (SodH) SHARP DK BLUE (K2) DK BLUE (S) ACD Blood Culture NIPT/NTD Patient has been identified by and name and was provided with cup, antiseptic towelette, and clean catch instructions. 1 urine specimen(s) sent. Unpreserved 1 Urine Culture Aptima tube Other urine [facility]
--- NOTE | 2023-10-27 13:13 | EDPHYS ---
Physician Documentation [facility] Name: Tati Renee Age: 58 yrs Sex: Male : 1965 Arrival Date: 10/27/2023 Time: 12:40 Bed IW6 Private MD: ED Physician Wily Polanco HPI: 10/26 13:08 This 58 yrs old Male presents to ER via Unassigned with complaints of Ear Pain kb - [id number]. 13:08 Pt is a 58 year old male who presents for right ear pain that started 3 months ago. kb States he has been to several dr's and keeps getting referred to another specialist. States he was seen by an ENT in [place] today and an appt was made for a different ENT in [place] for tomorrow. States they have done CT scans and have tried 4 different ear drops. Has been told a few times that he may need to be hospitalized for IV antibiotics but they want him to try this most recent ear drop and see the ENT tomorrow first. Denies fever. States he hasn't been able to sleep due to pain. . Historical: - Allergies: 13:09 No Known Allergies; db - PMHx: 13:09 Diabetes mellitus; db - Immunization history:: Adult Immunizations unknown. - Infectious Disease History:: Denies. - Social history:: Smoking status: Patient denies any tobacco usage or history of. ROS: 13:08 Constitutional: As per HPI kb Exam: 13:08 Constitutional: This is a well developed, well nourished patient who is awake, alert, kb and in no acute distress. Head/Face: Normocephalic, atraumatic. Cardiovascular: Regular rate Respiratory: Respirations even and unlabored. No increased work of breathing. Talking in full sentences Skin: Warm, dry with normal turgor. Normal color. MS/ Extremity: Pulses equal, no cyanosis. Neurovascular intact. Full, normal range of motion. Neuro: Awake and alert, GCS 15, oriented to person, place, time, and situation. Moves all extremities. Normal gait. 13:08 ENT: External ear(s): are unremarkable, Ear canal(s): are normal, TM's: erythema, that is mild, on the right, Vital Signs: 13:08 BP 154 / 86; Pulse 87; Resp 16; Temp 97.8(O); Pulse Ox 100% ; Weight 73.48 kg; Height 5 db ft. 7 in. ; Pain 10/10; 13:08 Body Mass Index 25.37 (73.48 kg, 170.18 cm) db 13:08 Pain Scale: Adult db MDM: 12:58 Patient medically screened. kb 13:11 Differential diagnosis: otitis media, otitis externa, ruptured TM, foreign body, acute kb otalgia. Data reviewed: vital signs, nurses notes. Historians other than the Patient: Spouse/Significant Other: spouse. Counseling: I had a detailed discussion with the patient and/or guardian regarding the historical points, exam findings, and any diagnostic results supporting the discharge/admit diagnosis, the need for outpatient follow up, an ENT specialist, to return to the emergency department if symptoms worsen or persist or if there are any questions or concerns that arise at home. ED course: Pt educated to picker box operator and use ear drops that were prescribed today and to follow up with ENT tomorrow as scheduled. Verbal understanding received from pt and spouse. Administered Medications: 13:15 Drug: Redfox PO 10 mg-325 mg 1 tabs PO once Route: PO; db 13:32 Follow up: Response: No adverse reaction db Disposition: 16:34 Co-signature as Attending Physician, Wily Polanco MD I reviewed the patient's care rn provided by the Advanced Practice Provider and agree with the diagnosis and treatment plan. Disposition Summary: 10/27/23 13:12 Discharge Ordered Notes: Location: Home kb Condition: Stable kb Diagnosis - Otitis media, unspecified, right ear kb Followup: kb - With: Emergency Department - When: As needed - Reason: Worsening of condition Followup: kb - With: Private Physician - When: 2 - 3 days - Reason: Recheck today's complaints, Continuance of care, Re-evaluation by your physician Discharge Instructions: - Discharge Summary Sheet kb - Otitis Media, Adult, [id number] kb Forms: - Medication Reconciliation Form kb - Antibiotic Education kb - Prescription Opioid Use kb - Patient Portal Instructions kb - Leadership Thank You Letter kb Signatures: Sushila Keys FNP-C FNP-Wily Andrade MD MD rn Benton, Danielle, RN RN db Corrections: (The following items were deleted from the chart) 13:10 13:09 PMHx: None; db db
--- NOTE | 2023-10-27 13:13 | ER ---
Nurse's Notes [facility] Name: Tati Renee Age: 58 yrs Sex: Male : 1965 Arrival Date: 10/27/2023 Time: 12:40 Bed IW6 Private MD: Diagnosis: Otitis media, unspecified, right ear Presentation: 10/26 13:08 Chief complaint: Patient states: RIGHT EAR PAIN X 3 MONTHS. Coronavirus screen: Client db denies travel out of the [place] in the last 14 days. At this time, the client does not indicate any symptoms associated with coronavirus-19. Ebola Screen: Patient negative for fever greater than or equal to 101.5 degrees Fahrenheit, and additional compatible Ebola Virus Disease symptoms Patient denies exposure to infectious person. Patient denies travel to an Ebola-affected area in the 21 days before illness onset. No symptoms or risks identified at this time. Initial Sepsis Screen: Does the patient meet any 2 criteria? No. Patient's initial sepsis screen is negative. Does the patient have a suspected source of infection? No. Patient's initial sepsis screen is negative. Risk Assessment: Do you want to hurt yourself or someone else? Patient reports no desire to harm self or others. Onset of symptoms was October 27, 2023. 13:08 Method Of Arrival: Ambulatory db 13:08 Acuity: RAN 4 db Triage Assessment: 13:09 General: Appears in no apparent distress. uncomfortable, Behavior is calm, cooperative. db Pain: Complains of pain in right ear. EENT: Reports pain in right ear. Historical: - Allergies: 13:09 No Known Allergies; db - PMHx: 13:09 Diabetes mellitus; db - Immunization history:: Adult Immunizations unknown. - Infectious Disease History:: Denies. - Social history:: Smoking status: Patient denies any tobacco usage or history of. Screenin:32 [facility] ED Fall Risk Assessment (Adult) History of falling in the last 3 months, db including since admission No falls in past 3 months (0 pts) Confusion or Disorientation No (0 pts) Intoxicated or Sedated No (0 pts) Impaired Gait No (0 pts) Mobility Assist Device Used No (0 pt) Altered Elimination No (0 pt) Score/Fall Risk Level 0 - 2 = Low Risk Oriented to surroundings, Maintained a safe environment. Abuse screen: Denies threats or abuse. Denies injuries from another. Nutritional screening: No deficits noted. Tuberculosis screening: No symptoms or risk factors identified. Assessment: 13:32 Reassessment: Patient appears in no apparent distress at this time. Patient and/or db family updated on plan of care and expected duration. Pain level reassessed. Patient is alert, oriented x 3, equal unlabored respirations, skin warm/dry/pink. General: Appears in no apparent distress. comfortable, Behavior is calm, cooperative. Pain: Complains of pain in right ear. Neuro: Level of Consciousness is awake, alert, obeys commands, Oriented to person, place, time, situation. Respiratory: Airway is patent Respiratory effort is even, unlabored, Respiratory pattern is regular, symmetrical. Vital Signs: 13:08 BP 154 / 86; Pulse 87; Resp 16; Temp 97.8(O); Pulse Ox 100% ; Weight 73.48 kg; Height 5 db ft. 7 in. ; Pain 10/10; 13:08 Body Mass Index 25.37 (73.48 kg, 170.18 cm) db 13:08 Pain Scale: Adult db ED Course: 12:42 Patient arrived in ED. ra3 12:56 [facility] kb 12:56 Wily Polanco MD is Attending Physician. kb 13:09 Triage completed. db 13:09 Arm band placed on Patient placed in waiting room. db 13:32 Patient has correct armband on for positive identification. Provided Education on: db DISCHARGE AND FOLLOWUP. 13:32 No provider procedures requiring assistance completed. Patient did not have IV access db during this emergency room visit. Administered Medications: 13:15 Drug: Granger PO 10 mg-325 mg 1 tabs PO once Route: PO; db 13:32 Follow up: Response: No adverse reaction db Medication: 13:32 VIS not applicable for this client. db Outcome: 13:12 Discharge ordered by . kb 13:32 Discharged to home ambulatory, with family, db 13:32 Condition: stable 13:32 Discharge instructions given to patient, family, Instructed on discharge instructions, follow up and referral plans. 13:34 Patient left the ED. db Signatures: Sushila Keys FNP-C FNP-Shaista Bach RN RN Yanna Kennedy ra3 Corrections: (The following items were deleted from the chart) 13:09 PMHx: None; db db
[2023-10-27] MEDS ORDERED: HYDROCODONE/APAP 10/325 TAB ONE (13:30)
[2023-10-27 13:49] VITALS: BP 154/86; TEMP 97.8; O2SAT 100
== END 2023-10-27 13:34 | disposition home or self-care (01) ==
LOC: ER 12:40
DX: H66.91 Otitis media, unspecified, right ear (principal)
CPT/HCPCS: 99283